=== PATIENT | male | born 1945 | race Caucasian/White ===

== ENCOUNTER 2016-08-14 09:39 | Day surgery (SDC) | payer MEDICARE, OTHER ==
--- NOTE | 2016-08-14 07:58 | History and Physical - Fer[place] ---
CHIEF COMPLAINT/HISTORY OF CHIEF COMPLAINT: This patient with a history of intractable lumbar radiculitis which is a post laminectomy syndrome currently has a spinal opioid infusion system in place with a depleted battery. This was identified over the last number of refills and reprogramming's. He is here for battery replacement. Along with his he has four peripheral stimulators in the area of his sacroiliac joint effusion, two of which have malfunctioned and by computer analysis show electrode failure. He is here for pump battery replacement. No changes will be made to his infusion perimeters of the medication infused Hydromorphone. Along with that we will replace two of the peripheral stimulators interfacing to the internal generator. PAST MEDICAL HISTORY: Hypertension and cerebrovascular disease. PAST SURGICAL HISTORY: Cervical spine fusion, lumbar spine fusion, pump implant , and stimulator implant. MEDICATIONS ON ADMISSION: List to be provided. ALLERGIES: LYRICA, VICODIN, AND CIPRO. FAMILY/PSYCHOSOCIAL HISTORY: Social history - Noncontributory. Family history - Coronary artery disease, hypertension and cancer. SYSTEMS REVIEW: The patient seems appropriate in no acute distress. PHYSICAL EXAMINATION: Height and weight are not identified. Vital signs - Not available. HEENT: Within normal limits. LUNGS: Clear. HEART: Regular rate and rhythm. ABDOMEN: Nontender. MUSCULOSKELETAL: Examination of the musculoskeletal system shows diffuse tenderness in the lumbar spine. Range of motion does produce pain throughout the low back and extremities. The patient is wheelchair bound. He has a pump pouchy at the posterior gluteal margin to the right. The incisional sites for the stimulators are intact. The generator for the pump and battery show incisional sites which are intact. NEUROLOGIC: Cranial nerves are intact. IMPRESSION: 1. POST LUMBAR LAMINECTOMY SYNDROME, ICD10 CODE M96.1. 2. LUMBAR RADICULITIS, ICD10 CODE M54.16 AND M54.17. 3. SPINAL CORD STIMULATOR WITH TWO PERIPHERAL LEADS MALFUNCTION AND SPINAL OPIOID INFUSION SYSTEM WITH BATTERY DEPLETION. PLAN: The patient is here for pump battery replacement. No perimeter changes will be made. Two lead replacement for the peripheral stimulator. The procedure will be considered outpatient although an overnight stay will be evaluated. DARWIN NG D.O. Date & Time JOB NUMBER: [id number] MTDD
[~2016-08-14 09:39] MED LIST: HYDROMORPHONE HCL 0.6 GM in 0.9 % SODIUM CHLORIDE 10ML VIA 20 ML IV ONE; HYDROMORPHONE HCL/PF 0.002 MG in 0.9 % SODIUM CHLORIDE 10ML VIA 0.998 ML IVP ONE
[2016-08-14] MEDS ORDERED: FAMOTIDINE 20MG TABLET PO ONE (11:00)
[2016-08-14] MEDS ORDERED: METOCLOPRAMIDE 10 MG TABLET PO ONE (11:00)
[2016-08-14] MEDS ORDERED: CEFAZOLIN 2 Gram 50 ML IVPB ONE (11:00)
[2016-08-14] MEDS ORDERED: ACETAMINOPHEN 1000MG/100 ML PREMIX IV ONE (11:00)
[2016-08-14] MEDS ORDERED: MECLIZINE 25 MG TABLET PO ONE (11:00)
[2016-08-14] MEDS ORDERED: METOCLOPRAMIDE 10 MG TABLET PO PRN (13:54)
[2016-08-14] MEDS ORDERED: HYDROMORPHONE HCL 2 MG/ML VIAL IM PRN (13:54)
[2016-08-14] MEDS ORDERED: OXYCODONE/APAP 10MG-325MG TABLET PO PRN ×2 (13:54)
[2016-08-14] MEDS ORDERED: METOCLOPRAMIDE HCL 10 MG/2 ML VIAL IVP PRN (13:54)
[2016-08-14] MEDS ORDERED: HYDROCODONE/APAP 7.5/325MG TABLET PO PRN ×2 (13:54)
[2016-08-14] MEDS ORDERED: HYDROMORPHONE HCL 1 MG/ML CPJ IM PRN (13:54)
[2016-08-14] MEDS ORDERED: BUPIVACAINE 0.5% W/EPI MPF 30 ML VIAL IVP ONE (14:23)
[2016-08-14] MEDS ORDERED: LIDOCAINE 1% W/EPI 1:200,000 MPF 30ML SQ ONE (14:23)
[2016-08-14] MEDS ORDERED: CEFAZOLIN 1G VIAL IM ONE (14:23)
[2016-08-14] MEDS ORDERED: LIDOCAINE 2% MDV (20MG/ML) 20ML VIAL IV ONE (16:00)
[2016-08-14] MEDS ORDERED: PROPOFOL 10 MG/ML VIAL IV ONE (16:00)
[2016-08-14] MEDS ORDERED: MIDAZOLAM HCL 2MG/2ML VIAL IV ONE (16:00)
[2016-08-14] MEDS ORDERED: FENTANYL PF 100MCG/2ML VIAL IV ONE (16:00)
[2016-08-14] MEDS ORDERED: HYDROMORPHONE HCL 2 MG/ML VIAL IV ONE (16:00)
--- NOTE | 2016-08-16 13:45 | Operative Note ---
DATE OF SURGERY: 08/14/2016 PREOPERATIVE DIAGNOSES: 1. Post lumbar laminectomy syndrome, ICD 10 code M96.12; lumbar radiculitis, ICD 10 code, M54.16, M54.17. 2. Peripheral nerve stimulator nonfunctional leads x 2. 3. Programmable pump infusing hydromorphone battery depletion. OPERATION: 1. Incision, subdissection, removal, and replacement of indwelling programmable pump left flank. 2. Aspiration, clearing of spinal catheter of opioid and CSF mixture. 3. Diagnostic myelography with radiologic supervision and interpretation. 4. Programming of pump to deliver by continuous infusion hydromorphone, pre-existing rate. 5. Incision, subdissection, and removal and replacement of 2 peripheral nerve stimulator leads right hip. 6. Incision, subdisssection and revision of right internal pulse generator. 7. Closure of incision with Vicryl for fascia and running subcuticular for skin, Dermabond closure. 8. Complex programming internal generator, 4 peripheral stimulators. Recovery room 20 minutes. Surgeon: Manuel Vasquez DO. Anesthesia: Local sedation. Anesthesia Provider: TEJA Purdy. Indication: This patient presents with a history of intractable lumbar radiculitis from post laminectomy. He has an indwelling spinal fusion system at the left flank infusing hydromorphone with battery depletion. He has 4 peripheral nerve stimulators with a generator to the right flank with 2 leads nonfunctional. PROCEDURE: Intravenous line, vital sign monitoring, IV sedation, prepped and draped in sterile technique. The patient was positioned in a modified Christensen position, right side up. Sterile prep, sterile technique. Under imaging, the pump at the left posterior margin was infiltrated, skin infiltrated, incision made and subcutaneous dissection was conducted. The pump was then exteriorized. The pump was from the indwelling spinal catheter. A new pump placed on the field, prefilled with hydromorphone. The pump was then interfaced with the existing spinal catheter. Using a 24-gauge Zavala needle, 1 mL of catheter contents was aspirated through the access port, clearing the catheter of opioid and CSF mixture. Diagnostic myelography was then performed through the access port. The resulting flow characteristics were appropriate in spinal space approximating T8. The tip of the catheter identified. All contrast flow characteristics were appropriate, suggesting appropriate interface between pump and catheter. The pump was then placed back into the pouch and secured to the posterior fascia using nonabsorbable suture. At that point, the incision was closed with Vicryl for fascia and subcuticular for skin, Dermabond closure. At the right flank peripheral stimulator generator pouch, skin infiltrated and incision made and subcutaneous dissection was conducted to the generator. The generator was then exteriorized and from the 4 indwelling leads. The midline incision for 2 peripheral nerve stimulators extending inferiorly was then infiltrated and incision made and subcutaneous dissection was conducted to the leads and their anchors. The 2 peripheral leads were then removed intact. From the incisional site, two 6-inch needles were extended laterally towards the hip and then 2 peripheral nerve stimulators were inserted through the needles positioned above and below the hip subcutaneously. The needles were removed with the leads remaining. The 2 peripheral leads were then tested using complex program parameters over 20 minutes. Appropriate stimulation patterns over the patient's right hip with the patient indicating we had the appropriate stimulation to control his hip pain. He was given the option to implant the leads or remove the system. He opted to implant. He was re-sedated. The leads were then anchored to the fascia with nonabsorbable suture. The generator was then placed into the pouch after being interfaced with all 4 leads and secured to the fascia, the pouch with a nonabsorbable suture. The pouch was then revised to accommodate the new leads and extensions. Antibiotic irrigation and good hemostasis at all sites. The generator was secured to the fascia with nonabsorbable suture and then the incisions were all closed with Vicryl for fascia and running subcuticular for skin, a Dermabond closure system was then placed. Result was removal and replacement of 2 peripheral stimulator leads, revision of the generator for the stimulator site, and replacement of the programmable pump at the left posterior gluteal margin. All sites were cleaned, Dermabond closure over all. Complex programming of the pump was then performed, resetting the basal rate. Complex programming of the internal stimulator generator was then performed over 20 minutes, reestablishing stimulation appropriate areas. He was then transported to the recovery room stable, showing no side effects from the procedure or the sedation. He was monitored until stable and then discharged home. DISCHARGE INSTRUCTIONS: 1. The sites will remain clean and dry. No showering or bathing in any way, although the Dermabond will allow showering after 24-48 hours. 2. Standard medication resumed including Levaquin antibiotic 500 mg once a day for 14 days. If he does not tolerate the antibiotic, he should call the office for modification and replacement. 3. Although the sites will allow showering, he should monitor the incisions for breakdown. 4. All other instructions were provided, with numbers to contact if problems given. He was then prepared for discharged home. DO LORRI Crespo
--- NOTE | 2016-08-20 12:02 | RADIOLOGY REPORT ---
EXAM: AP PELVIS HISTORY: BATTERY REPLACEMENT IMPLANT. TECHNIQUE: AP view of the pelvis was obtained. Comparison: Pelvis 01/11/15. FINDINGS: Power pack overlies the right lower quadrant. Two stimulator leads project over the right sacral ala and two project over the right gluteal region. Additional power pack overlies the left lower quadrant. Partially visualized lumbar spinal fusion hardware. 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 IMPRESSION: MULTIPLE LEADS OVERLYING THE RIGHT PELVIS ABOVE. JOB NUMBER: [id number] [facility]
== END 2016-08-14 15:50 | disposition home or self-care (01) ==
LOC: SUR 09:39 → MEDSURG 13:37 → SUR 15:50
PROVIDERS: ATTEND Pain Medicine Interventional Pain Medicine
DX: T85.191A Other mechanical complication of implanted electronic neurostimulator of peripheral nerve electrode (lead), initial encounter (principal); T85.695A Other mechanical complication of other nervous system device, implant or graft, initial encounter; M96.1 Postlaminectomy syndrome, not elsewhere classified; M54.16 Radiculopathy, lumbar region; M54.17 Radiculopathy, lumbosacral region; I10 Essential (primary) hypertension
CPT/HCPCS: 64585; 62360; 00300; 95972; 62367; 72170; Q9967; J1170 ×2; J3010; J0690